=== PATIENT | male | born 1980 | race Caucasian/White ===

== ENCOUNTER 2020-02-21 15:54 | Emergency (ER) | payer MEDICARE, MEDICAID, SELFPAY ==
[~2020-02-21] VITALS: Ht 175.3 cm; Wt 90.7 kg
[~2020-02-21 15:54] MED LIST: CEPH250C16 PO; CLON0.1T42 PO; CLON0.5T PO; METO-460 PO; OMEP40EC24 PO; PRED20TA5 PO; RISP1TAB1 PO; VENL150C1 PO
[2020-02-21 16:57] VITALS: BP 128/80
[2020-02-21 18:30] VITALS: BP 128/80
--- NOTE | 2020-02-21 18:30 | NUR ---
c/o fever and sorethroat with a cough
--- NOTE | 2020-02-21 18:31 | NUR ---
Patient discharged with v/s stable. Written and verbal after care instructions given and explained. Patient alert, oriented and verbalized understanding of instructions. Ambulatory with steady gait. All questions addressed prior to discharge. ID band removed. Patient advised to follow up with PMD. Rx of tessalon perels/tylenol given. Patient educated on indication of medication including possible reaction and side effects. Opportunity to ask questions provided and answered.
--- NOTE | 2020-02-21 18:31 | NUR ---
covid-19 swab collected
== END 2020-02-21 18:31 | disposition home or self-care (01) ==
LOC: MED 15:54 → EEVIPCON 15:54 → MED 18:31
DX: B34.9 Viral infection, unspecified (principal); Z20.828 Contact with and (suspected) exposure to other viral communicable diseases; F20.9 Schizophrenia, unspecified; Z79.899 Other long term (current) drug therapy
CPT/HCPCS: 99283; U0003

== ENCOUNTER 2024-03-27 00:45 | Observation (INO) | payer OTHER ==
[~2024-03-27] VITALS: Ht 182.9 cm; Wt 117.5 kg
[2024-03-27] VITALS (8 sets, daily range): BP systolic 107–139; BP diastolic 64–77; PULSE 97–111; RESP 18–20; TEMP 97.2–99.8; O2SAT 94–98
[~2024-03-27 00:45] MED LIST changes: +CLON-1201 PO; +CLON0.1T16 PO; -CLON0.1T42 PO; -CLON0.5T PO; +RIS1 PO; +RISP0.5T3 PO; -VENL150C1 PO; +VENL150C4 PO
[2024-03-27] MEDS ORDERED: MIDAZOLAM 5 MG/5 ML VIAL ONE (01:00)
[2024-03-27] MEDS ORDERED: OLANZapine 10 MG VIAL IM ONE (01:01)
[2024-03-27] MEDS: OLANZapine 10 MG VIAL IM ONE (01:11)
[2024-03-27] MEDS: MIDAZOLAM 2 MG/2 ML VIAL IM ONE (01:26)
[2024-03-27 03:48] LABS: BASOPHILS % (AUTO) 0.1 % (0.0-2.0); HEMATOCRIT 40.2 % (36-52); HEMOGLOBIN 13.9 g/dL (12.0-18.0); LYMPHOCYTES # (AUTO) 0.7 K/uL (2.0-11.5); LYMPHOCYTES % (AUTO) 3.5 % (20.5-51.1); MEAN CORPUSCULAR HEMOGLOBIN 31 pg (27-31); MEAN CORPUSCULAR HGB CONC 35 g/dL (33-37); MEAN CORPUSCULAR VOLUME 88.3 fL (80-94); MONOCYTES # (AUTO) 1.6 K/uL (0.8-1.0); MONOCYTES % (AUTO) 7.9 % (1.7-9.3); NEUTROPHILS # (AUTO) 17.4 K/uL (1.8-7.7); NEUTROPHILS % (AUTO) 88.5 % (42.2-75.2); PLATELET COUNT (AUTO) 163 K/uL (140-450); RED BLOOD CELL COUNT(AUTO) 4.56 MIL/uL (4.20-6.10); WHITE BLOOD COUNT (AUTO) 19.7 K/uL (4.8-10.8)
[2024-03-27 04:15] LABS: SALICYLATE < 2.8 mg/dL (2.8-20.0)
[2024-03-27 04:16] LABS: ANION GAP 23.9 (8-16); CALCIUM 8.6 mg/dL (8.5-10.1); CARBON DIOXIDE 16.1 mmol/L (21-32); CREATININE 1.3 mg/dL (0.6-1.3)
[2024-03-27 04:35] LABS: ALCOHOL, BLOOD 175 mg/dL (<10)
[2024-03-27] MEDS: NACL 0.9% 2,000 ML IV ONE (05:48)
[2024-03-27 07:31] LABS: APPEARANCE,URINE SLIGHTLY CLOUDY (CLEAR); BILIRUBIN,URINE NEGATIVE (NEGATIVE); BLOOD, URINE 2+ (NEGATIVE); COLOR,URINE YELLOW (YELLOW); NITRITE, URINE POSITIVE (NEGATIVE); PROTEIN,URINE 2+ (NEGATIVE); UGLUCOSE NEGATIVE (NEGATIVE); UROBILINOGEN,URINE 0.2 EU/dL (0.2 - 1)
[2024-03-27 07:32] LABS: LEUKOCYTE ESTERASE ,URINE NEGATIVE (NEGATIVE)
[2024-03-27 07:33] LABS: BACTERIA,URINE 1+ /HPF (None Seen); MUCUS,URINE None Seen /LPF (None Seen); SQUAMOUS EPITHELIAL CELL,UR 0-3 (FEW) /LPF (0-3 (FEW)); WBC,URINE 0-5 /HPF (0-5)
[2024-03-27 07:35] LABS: AMPHETAMINE, URINE NEGATIVE ng/ml (NEG <=1000); BARBITURATE, URINE NEGATIVE ng/ml (NEG <=200); BENZODIAZEPINE, URINE NEGATIVE ng/mL (NEG <=200); CANNABINOID, URINE NEGATIVE ng/mL (NEG <=50); COCAINE, URINE NEGATIVE ng/mL (NEG <=300); OPIATE, URINE NEGATIVE ng/mL (NEG <=2000); PHENCYCLIDINE SCREEN,URINE NEGATIVE ng/mL (NEG <=25)
[2024-03-27] MEDS: POTASSIUM CHLORIDE 10 MEQ TABER PO ONE (07:36)
[2024-03-27 08:19] LABS: CREATINE KINASE, TOTAL 6265 U/L (39-308)
[2024-03-27] MEDS: PANTOPRAZOLE 40 MG INJ VIAL IVP ONE (09:36)
[2024-03-27] MEDS: ONDANSETRON 4 MG/2 ML VIAL IVP ONE (09:37)
[2024-03-27] MEDS: LORazepam 2 MG/ML VIAL IVP ONE (09:38)
[2024-03-27] MEDS ORDERED: [UNRECOGNIZED DRUG - CODE] PO (09:52)
[2024-03-27] MEDS ORDERED: SIMV-33 PO (09:52)
[2024-03-27] MEDS ORDERED: VENL-152 PO (09:52)
[2024-03-27] MEDS ORDERED: VALA1TAB39 PO (09:53)
[2024-03-27] MEDS ORDERED: ZOLPIDEM 5 MG TAB PO PRN (10:05)
[2024-03-27] MEDS: NACL 0.9% 1,000 ML IV SCH (10:05)
[2024-03-27] MEDS ORDERED: ONDANSETRON 4 MG/2 ML VIAL IVP PRN (10:05)
[2024-03-27] MEDS ORDERED: POTASSIUM CHLORIDE 10 MEQ TABER PO PRN (10:05)
[2024-03-27] MEDS ORDERED: MAG SULF 2000 MG/WATER PREMIX 50 ML IV PRN (10:05)
[2024-03-27] MEDS ORDERED: MAGNESIUM OXIDE 400 MG TAB PO PRN (10:05)
[2024-03-27] MEDS ORDERED: LORazepam 1 MG TAB PO PRN (10:05)
[2024-03-27] MEDS ORDERED: KCL 20 MEQ IN 100 mL PREMIX 200 ML IV PRN (10:05)
[2024-03-27] MEDS ORDERED: cefTRIAXone 1,000 MG VIAL ONE (10:14)
[2024-03-27] MEDS: NACL 0.9% 1,000 ML IV ONE (11:28)
[2024-03-27 17:20] LABS: ANION GAP 11.6 (8-16); CALCIUM 8.1 mg/dL (8.5-10.1); CARBON DIOXIDE 24.1 mmol/L (21-32); CREATININE 0.9 mg/dL (0.6-1.3); POTASSIUM 3.7 mmol/L (3.5-5.1)
[2024-03-27 17:31] LABS: CREATINE KINASE MB 70.8 ng/mL (0-3.6)
[2024-03-27 17:33] LABS: BASOPHILS % (AUTO) 0.2 % (0.0-2.0); EOSINOPHILS % (AUTO) 0.4 % (0.0-4.0); HEMATOCRIT 35.5 % (36-52); LYMPHOCYTES # (AUTO) 1.7 K/uL (2.0-11.5); LYMPHOCYTES % (AUTO) 16.1 % (20.5-51.1); MEAN CORPUSCULAR HEMOGLOBIN 30 pg (27-31); MEAN CORPUSCULAR HGB CONC 34 g/dL (33-37); MEAN CORPUSCULAR VOLUME 88.5 fL (80-94); MONOCYTES # (AUTO) 1.1 K/uL (0.8-1.0); MONOCYTES % (AUTO) 10.7 % (1.7-9.3); NEUTROPHILS # (AUTO) 7.6 K/uL (1.8-7.7); NEUTROPHILS % (AUTO) 72.6 % (42.2-75.2); PLATELET COUNT (AUTO) 120 K/uL (140-450); RED BLOOD CELL COUNT(AUTO) 4.01 MIL/uL (4.20-6.10); RED CELL DISTRIBUTION WIDTH 14.2 % (11.6-13.7); WHITE BLOOD COUNT (AUTO) 10.4 K/uL (4.8-10.8)
[2024-03-27 18:25] LABS: CKMB RELATIVE INDEX 0.4 (0.0-2.5)
[2024-03-28] VITALS: BP 128/76; PULSE 101; PULSE 78; RESP 18; TEMP 98; O2SAT 97
[2024-03-28 04:00] VITALS: BP 116/70; PULSE 75; PULSE 99; RESP 18; TEMP 98.9; O2SAT 97
[2024-03-28 06:58] LABS: BASOPHILS % (AUTO) 0.5 % (0.0-2.0); EOSINOPHILS # (AUTO) 0.1 K/uL (0-0.4); HEMATOCRIT 34.9 % (36-52); HEMOGLOBIN 12.2 g/dL (12.0-18.0); LYMPHOCYTES # (AUTO) 1.9 K/uL (2.0-11.5); LYMPHOCYTES % (AUTO) 27.5 % (20.5-51.1); MEAN CORPUSCULAR HEMOGLOBIN 31 pg (27-31); MEAN CORPUSCULAR HGB CONC 35 g/dL (33-37); MEAN CORPUSCULAR VOLUME 87.5 fL (80-94); MONOCYTES # (AUTO) 0.7 K/uL (0.8-1.0); MONOCYTES % (AUTO) 10.3 % (1.7-9.3); NEUTROPHILS # (AUTO) 4.2 K/uL (1.8-7.7); NEUTROPHILS % (AUTO) 59.7 % (42.2-75.2); PLATELET COUNT (AUTO) 109 K/uL (140-450); RED BLOOD CELL COUNT(AUTO) 3.99 MIL/uL (4.20-6.10)
[2024-03-28 07:17] LABS: ANION GAP 12.4 (8-16); CALCIUM 8.6 mg/dL (8.5-10.1); CARBON DIOXIDE 24.2 mmol/L (21-32); CREATININE 0.8 mg/dL (0.6-1.3); POTASSIUM 3.6 mmol/L (3.5-5.1)
[2024-03-28 07:27] LABS: PHOSPHORUS 2.7 mg/dL (2.5-4.9)
[2024-03-28 08:00] VITALS: BP 112/68; PULSE 75; PULSE 77; RESP 16; TEMP 97.4; O2SAT 95
[2024-03-28 08:39] LABS: CKMB RELATIVE INDEX 0.2 (0.0-2.5); CREATINE KINASE MB 41.5 ng/mL (0-3.6)
[2024-03-28] MEDS: OLANZapine 5 MG TAB PO SCH (08:43)
[2024-03-28 12:00] VITALS: BP 113/68; PULSE 88; RESP 17; TEMP 97.7; O2SAT 93
[2024-03-28 16:00] VITALS: BP 126/75; PULSE 90; PULSE 94; RESP 16; TEMP 98.1; O2SAT 97
[2024-03-28 17:35] LABS: CREATINE KINASE, TOTAL 16780 U/L (39-308)
[2024-03-28 17:55] VITALS: BP 126/75; PULSE 90; RESP 16; TEMP 98.1
== END 2024-03-28 19:15 | disposition home or self-care (01) ==
LOC: MED 00:45 → EEVIPCON 10:07 → MTU 10:07
PROVIDERS: ADMIT Hospitalist; ATTEND Hospitalist
DX: M62.82 Rhabdomyolysis (principal); F20.9 Schizophrenia, unspecified; F10.129 Alcohol abuse with intoxication, unspecified; R41.0 Disorientation, unspecified; N17.9 Acute kidney failure, unspecified; E87.6 Hypokalemia; N39.0 Urinary tract infection, site not specified; D72.829 Elevated white blood cell count, unspecified; Z79.899 Other long term (current) drug therapy; Y90.6 Blood alcohol level of 120-199 mg/100 ml
CPT/HCPCS: 36415; 70450; 71045; 80048; 80305; 81001; 82550; 82553; 83605; 83735; 84100; 85025; 87040; 87081; 87086; 90471; 90715; 93005; 96361; 96365; 96372; 96375; 99291; G0378; G0480; J0696; J2060; J2250; J2405; J2470; J3490; Q0092; G0482